=== PATIENT | male | born 1975 | race Caucasian/White ===

== ENCOUNTER 2018-05-14 00:11 | Emergency (ER) | payer SELFPAY ==
[2018-05-14] MEDS: ACETAMINOPHEN 500 MG TAB PO (02:22)
== END 2018-05-14 03:56 | disposition home or self-care (01) ==
LOC: FTE 00:11
DX: S16.1XXA Strain of muscle, fascia and tendon at neck level, initial encounter (principal); S39.012A Strain of muscle, fascia and tendon of lower back, initial encounter; R51 Headache; V48.9XXA Unspecified car occupant injured in noncollision transport accident in traffic accident, initial encounter
CPT/HCPCS: 99283